=== PATIENT | male | born 2000 | race African-American/Black ===

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

== ENCOUNTER 2022-12-16 14:08 | Emergency (ER) | payer OTHER, SELFPAY ==
[2022-12-16 14:20] VITALS: BP 123/72; PULSE 74; RESP 20; TEMP 37.1; O2SAT 100
--- NOTE | 2022-12-16 14:29 | ED.SKABFB ---
HPI - Skin/Abscess/Foreign Bdy General Chief complaint: Skin/Abscess/Foreign Body Stated complaint: itchy groin Time Seen by Provider: 12/16/22 14:23 Source: patient and RN notes reviewed Mode of arrival: ambulatory Limitations: no limitations History of Present Illness HPI narrative: Patient presents today with 3 day history of itching to his scrotum. Denies rash, swelling, or any additional symptoms. Reports symptoms are worse after showering and sweating. He has tried some [id number]-ies-xrpkeve itch cream that occasionally will provide some mild relief. Related Data Home Medications Medication Instructions Recorded Confirmed No Home Medications 12/16/22 12/16/22 Allergies Allergy/AdvReac Type Severity Reaction Status Date / Time No Known Allergies Allergy Verified 12/16/22 14:22 Review of Systems Review of Systems: CONSTITUTIONAL: Denies body aches, fever, chills, or sweats. EYES: Denies visual changes, redness, or discharge. ENT: Denies rhinorrhea, congestion, sore throat, or otalgia. CARDIOVASCULAR: Denies chest pain, palpitations, or edema. RESPIRATORY: Denies cough or dyspnea. GASTROINTESTINAL: Denies abdominal pain, nausea, vomiting, or diarrhea. GENITOURINARY: Denies dysuria or hematuria. SKIN: Denies rash, itching, or wounds.+ scrotal itching MUSCULOSKELETAL: Denies back pain, joint pain, or myalgia. NEUROLOGIC: Denies headache, numbness, tingling, or weakness. PSYCH: Denies depression or anxiety. [facility] Past Medical History Medical History No significant past medical history Surgical History Surgical History No significant past surgical history Family History Family History Father Unknown family medical history Mother Diabetes mellitus Social History Social History Smoking status: Never smoker Tobacco type: cigarettes Second hand tobacco smoke exposure: Yes Alcohol intake: never Substance use: current Substance use type: marijuana Living arrangements: with family Occupation/Education: occupation Gender identity (if verbalized by the patient): Male Comments At time of signature, I have reviewed and agree with nursing past medical, surgical, social and family history unless otherwise noted. Please see nursing chart for further information. There is no relevant family history pertinent to the presenting complaint Exam Narrative: GENERAL: Well-appearing, well-nourished, and in no acute distress. HEAD: Normocephalic, atraumatic. EYES: EOMI. No redness or drainage. Conjunctivae normal. ENT: Mucous membranes pink and moist. NECK: Normal AROM. CHEST: No respiratory distress. : Chaperoned by Cary Smith RN. No rash or discoloration noted to penis, scrotum or groin folds. No sores noted. No tenderness noted. EXTREMITIES: Normal range of motion. No edema. SKIN: Warm, dry, no rash. Capillary refill normal. Normal skin turgor. NEURO: No focal deficits. Alert and oriented x3. Gait steady. PSYCH: Normal affect. No signs of depression or anxiety. Course Course Level of Care: Express Care Visit Vital Signs Vital signs: Vital Signs Temperature 98.7 F 12/16/22 14:20 Pulse Rate 74 12/16/22 14:20 Respiratory Rate 20 12/16/22 14:20 Blood Pressure 123/72 12/16/22 14:20 Pulse Oximetry 100 12/16/22 14:20 Temperature 98.7 F 12/16/22 14:20 Pulse Rate 74 12/16/22 14:20 Respiratory Rate 20 12/16/22 14:20 Blood Pressure 123/72 12/16/22 14:20 Pulse Oximetry 100 12/16/22 14:20 Reviewed. Pt has been instructed to follow up with his PCP regarding his elevated blood pressure today. MDM - Skin/Abscess/Foreign Bdy MDM Narrative Medical decision making narrative: No rash noted, but sy
== END 2022-12-16 14:39 | disposition home or self-care (01) ==
PROVIDERS: Emergency Provider Nurse Practitioner; PCP Pediatrics
DX: B35.6 Tinea cruris (principal); F12.90 Cannabis use, unspecified, uncomplicated
CPT/HCPCS: 99211; G0463

== ENCOUNTER 2024-04-23 12:46 | Emergency (ER) | payer OTHER, SELFPAY ==
--- NOTE | ~2024-04-23 | XR_ITS ---
EXAMINATION: XR forearm LT 2V DATE: 04/23/2024 13:16 INDICATION: Left forearm injury and pain. TECHNIQUE: 2 views of left forearm were obtained. COMPARISON: Left forearm radiographs 03/08/2015 FINDINGS: Alignment is normal. No fracture. Joint spaces are normal. No elbow joint effusion. IMPRESSION: 1. No fracture. Reviewed, dictated and finalized at location A. IMPRESSION: 1. No fracture.
--- NOTE | ~2024-04-23 | XR_ITS ---
EXAMINATION: XR sacrum coccyx min 2V DATE: 04/23/2024 13:17 INDICATION: Sacrococcygeal pain. Fall. TECHNIQUE: 3 views of the sacrum and coccyx were obtained. COMPARISON: None. FINDINGS: Alignment is normal. No fracture. Joint spaces are normal. IMPRESSION: 1. No fracture. Reviewed, dictated and finalized at location A. IMPRESSION: 1. No fracture.
--- NOTE | ~2024-04-23 | XR_ITS ---
EXAMINATION: XR lumbar spine 2-3V DATE: 04/23/2024 13:17 INDICATION: Low back pain. Fall. TECHNIQUE: 3 views of lumbar spine were obtained. COMPARISON: None. FINDINGS: There is 5 degrees dextrocurvature of lumbar spine. Vertebral body heights are normal. Inte rvertebral disc heights are normal. The facet joints are normal. IMPRESSION: 1. No etiology for the patient's symptoms. Reviewed, dictated and finalized at location A.
--- NOTE | 2024-04-23 12:48 | ED.FALL ---
HPI - Fall General Chief Complaint: Back Pain/Injury Stated Complaint: LOW BACK/L ARM/TAILBONE INJURY Source: patient and RN notes reviewed Limitations: no limitations History of Present Illness HPI Narrative: Patient is a 23-year-old male who presents to the [facility] after a fall from a box-truck that occurred just prior to arrival. Patient states that him and his coworker were attempting to move peterson from the back of a box truck. Patient states that he was standing on the liftgate when he lost his footing. He states that he was able to twist to the right, and catch himself with his right arm and knee. However, he reports injury his lower back during the fall. He states that as he fell, the peterson fell into his left forearm. Patient has complaints lower back pain and left forearm pain. There is notable swelling to the left forearm. He has full range of motion of the left arm. He is neurovascularly intact distally. Sensation is intact. Patient reports constant aching that is moderately severe to his lower back. It worsens with movement and positioning. He denies numbness. Denies dysfunction of bladder or bowel. Related Data Allergies Allergy/AdvReac Type Severity Reaction Status Date / Time No Known Allergies Allergy Verified 04/23/24 12:56 Review of Systems Review of Systems: CONSTITUTIONAL: Denies fever, chills, or sweats. EYES: Denies visual changes, redness, or discharge. ENT: Denies otalgia and sore throat CARDIOVASCULAR: Denies chest pain, palpitations, or edema. RESPIRATORY: Denies cough or dyspnea. GASTROINTESTINAL: Denies abdominal pain, nausea, vomiting, or diarrhea. GENITOURINARY: Denies dysuria or hematuria. SKIN: Denies rash or itching. MUSCULOSKELETAL: Reports low back pain and left forearm pain. NEUROLOGIC: Denies headache, numbness, or weakness. Pertinent positives per HPI. [facility] Past Medical History Medical History No significant past medical history Surgical History Surgical History No significant past surgical history Family History Family History Father Unknown family medical history Mother Diabetes mellitus Social History Social History Smoking status: Never smoker Tobacco type: cigarettes Second hand tobacco smoke exposure: Yes Alcohol intake: never Substance use: current Substance use type: marijuana Living arrangements: with family Occupation/Education: occupation Gender identity (if verbalized by the patient): Male Comments At the time of my signature, I reviewed and agree with the nursing past medical, surgical, social, and family history. There is no relevant family history pertinent to the patient complaint. Exam Narrative: GENERAL: This is a well-nourished, well-developed patient, in no apparent distress. HEAD: normocephalic, atraumatic. EYES: PERRL. Sclera clear/white. Vision is grossly intact. EARS: External ears normal, auditory canals clear and without drainage, TMs normal without perforation. Hearing grossly intact. NOSE: External nose normal with no obvious nasal discharge, nares without redness, no rhinorrhea. THROAT: Mucous membranes moist, posterior pharynx clear. NECK: Neck supple, non-tender without lymphadenopathy, masses or thyromegaly. CARDIOVASCULAR: Regular rate and rhythm without murmurs, gallops, or rubs. RESPIRATORY: Clear to auscultation. Breath sounds equal bilaterally. No wheezes, rales, or rhonchi. GASTROINTESTINAL: Abdomen soft, non-tender, nondistended. Bowel sounds are active. No hepato-splenomegaly, or palpable masses. No guarding. SKIN: warm, intact with no suspicious lesions or rash, good texture and turgor. NEURO: awake, alert, and oriented to person, place and time. There were no obvious focal
[2024-04-23 12:54] VITALS: BP 123/72; PULSE 72; RESP 16; O2SAT 100
== END 2024-04-23 13:47 | disposition home or self-care (01) ==
PROVIDERS: Emergency Provider Nurse Practitioner; PCP Internal Medicine
DX: S39.012A Strain of muscle, fascia and tendon of lower back, initial encounter (principal); W17.89XA Other fall from one level to another, initial encounter; Y99.0 Civilian activity done for income or pay; S50.12XA Contusion of left forearm, initial encounter
CPT/HCPCS: 72100; 72220; 73090; 99214; G0463